=== PATIENT | male | born 1955 | race Caucasian/White ===

== ENCOUNTER 2017-06-22 21:49 | Emergency (ER) | payer OTHER ==
[2017-06-22 22:17] VITALS: BP 142/98; PULSE 79; RESP 18; TEMP 97.9; O2SAT 97
[2017-06-22] MEDS ORDERED: Tdap Vaccine 0.5 ml Vial (10-64 yrs) IM ONE ×2 (22:38→22:45)
[2017-06-22] MEDS ORDERED: Lidocaine 1% Inj (20ml) IJ ONE (22:38)
[2017-06-22] MEDS ORDERED: Lidocaine 1% 20 MG/2 ML PF AMP ONE (22:44)
[2017-06-22] MEDS ORDERED: ceFAZolin 1 GM in Sodium Chloride 0.9% 100 ML IVPB STA (22:55)
[2017-06-22 23:15] LABS: BASO % 0.7 % (0.0-2.0); EOS # 0.4 K/uL (0.0-0.7); EOS % 6.4 % (0.0-4.0); HEMOGLOBIN 13.5 g/dL (12.0-18.0); LYMPH # 1.3 K/uL (1.0-4.3); LYMPH % 21.6 % (20.0-40.0); MEAN CELL VOLUME 84.6 fl (80.0-94.0); MEAN CORPUSCULAR HEMOGLOBIN 28.5 pg (27.0-31.0); MEAN CORPUSCULAR HGB CONC 33.7 g/dL (33.0-37.0); MEAN PLATELET VOLUME 7.4 fl (7.2-11.7); MONO # 0.5 K/uL (0.0-0.8); NEUT # 3.9 K/uL (1.8-7.0); NEUT % 63.3 % (50.0-75.0); RBC 4.73 Mil/uL (4.40-5.90); RED CELL DISTRIBUTION WIDTH 13.4 % (11.5-14.5); WHITE BLOOD COUNT 6.2 K/uL (4.8-10.8)
[2017-06-22 23:22] LABS: ALB/GLOB RATIO 1.2 (1.0-2.1); ALBUMIN 4.2 g/dL (3.5-5.0); ALT/SGPT 41 U/L (21-72); AST/SGOT 30 U/L (17-59); BLOOD UREA NITROGEN 13 mg/dl (9-20); CALCIUM 8.9 mg/dL (8.4-10.2); GFR AFRICAN-AMERICAN > 60; GFR NON-AFRICAN AMERICAN > 60
--- NOTE | 2017-06-22 23:25 | ED PDOC ---
Upper Extremity Pain/Injury Time Seen by Provider: 06/22/17 22:17 Chief Complaint (Nursing): Finger,Hand,&Wrist History Per: Patient Additional Complaint(s): Pt. states earlier today a heavy garage door accidentally closed on his L 4th and 5th digits. Denies numbness, tingling, other injury. Past Medical History Reviewed: Historical Data, Nursing Documentation, Vital Signs Vital Signs: Last Vital Signs Temp 97.9 F 06/22/17 22:12 Pulse 79 06/22/17 22:12 Resp 18 06/22/17 22:12 BP 142/98 H 06/22/17 22:12 Pulse Ox 97 06/22/17 22:12 - Family History Family History: States: No Known Family Hx - Immunization History Hx Tetanus Toxoid Vaccination: No Hx Influenza Vaccination: No Hx Pneumococcal Vaccination: No - Home Medications Home Medications: Ambulatory Orders Medication Instructions Recorded Acetaminophen 2 tab PO Q6 PRN #24 tab 10/02/14 Ciprofloxacin/Ciprofloxa HCl 500 mg PO BID #14 ter 10/02/14 [Ciprofloxacin] Phenazopyridine HCl [Pyridium] 100 mg PO BID PRN #6 tab 10/02/14 Amoxicillin/Clavulanate [Augmentin 1 tab PO BID #20 tab 06/22/17 500 MG-125 MG] - Allergies Allergies/Adverse Reactions: Allergies Allergy/AdvReac Type Severity Reaction Status Date / Time No Known Allergies Allergy Verified 09/14/15 17:14 Review of Systems ROS Statement: Except As Marked, All Systems Reviewed And Found Negative Physical Exam - Physical Exam Appears: Positive for: Well, Non-toxic, No Acute Distress Skin: Positive for: Normal Color, Warm. Negative for: Rash Pulses-Radial (L): 2+ Pulses-Radial (R): 2+ Extremity: Positive for: Other (L 5th digit with small laceration on nail with FROM actively; L 4th distal phalanx with partial amuptation - distal phalanx is attached solely on palmar surface of distal phalanx; mild non-pulsatile active bleeding) Neurologic/Psych: Positive for: Alert, Oriented. Negative for: Aphasia, Facial Droop - Laboratory Results Result Diagrams: 06/22/17 23:05 06/22/17 23:05 - ECG O2 Sat by Pulse Oximetry: 97 - Radiology X-Ray: Interpreted by Me (L hand x-rays) X-Ray Interpretation: Other (L 4th digit with displaced transverse fracture of distal phalanx) - Progress ED Course And Treament: Hand x-ray, tetanus prophylaxis ordered. Case d/w Dr. Gusman who requests that operating room surgical technologist evaluate pt. Dr. Michelle, operating room surgical technologist, is in ED and evaluated pt. and repaired laceration after discussing case with Dr. Gusman. Dr. Michelle requests blood work to be done along with a dose of ancef. Labs, ancef 1gm IV ordered. Dr. Michelle instructed pt. to f/u with Dr. Gusman in 1 week. Disposition - Clinical Impression Clinical Impression: Finger fracture, Finger laceration - Patient ED Disposition Is Patient to be Admitted: No - Disposition Referrals: Faisal Gusman MD [Staff Provider] - [facility] [place] [Outside] Disposition: Routine/Home Disposition Time: 23:29 Condition: STABLE Additional Instructions: Follow up with Dr. Gusman in 1 week as previously discussed Keep hand dry. Return to ED immediately if symptoms worsen. Prescriptions: Amoxicillin/Clavulanate [Augmentin 500 MG-125 MG] 1 tab PO BID #20 tab Instructions: Finger Fracture, Laceration Repair With Stitches (DC) Forms: [facility] (Albanian) Print Language: ITALIAN
--- NOTE | 2017-06-22 23:56 | PCM.PROC ---
Procedures Attestation:: I certify that I have explained the specified Operation(s) or Procedure(s), risks, benefits and reasonable alternatives to the Patient and/or other person responsible. The opportunity was given to ask questions and all questions answered - Laceration lidocaine 1% simple, single layer irregular irrigated extensively left upper extremity 4-0 other nerve block running [id number] Site: hand Side (if applicable): left Description: irregular Depth: simple, single layer Anesthesia used: lidocaine 1% Anesthesia technique: nerve block Amount (mLs): 8 Pre-repair: irrigated extensively Skin layer closed with: other (Nylon) Size: 4-0 Technique: running Tendon layer closed with: other (Nylon. Neilbed secured with 2 figure of 8 ) Size: 4-0 Number of sutures: 2 Technique: [id number]
--- NOTE | 2017-06-23 07:59 | RAD ---
PROCEDURE: Left Hand Radiographs. HISTORY: trauma COMPARISON: None. FINDINGS: BONES: Avulsion of the distal aspect distal phalanx left 4th digit. The major fracture fragments are distracted by approximately 6 mm. JOINTS: Normal. No osteoarthritic changes. SOFT TISSUES: Soft tissue swelling attests to the acuity of the fracture. OTHER FINDINGS: None. IMPRESSION: Acute posttraumatic crush injury resulting an avulsed distracted fracture distal phalanx left 4th digit.
== END 2017-06-23 00:08 | disposition home or self-care (01) ==
LOC: H.ER 21:49
DX: S62.635A Displaced fracture of distal phalanx of left ring finger, initial encounter for closed fracture (principal); W23.0XXA Caught, crushed, jammed, or pinched between moving objects, initial encounter; S61.219A Laceration without foreign body of unspecified finger without damage to nail, initial encounter
CPT/HCPCS: 12001; 73130; 80053; 85025; 90471; 90715; 96374; 99283; J0690